=== PATIENT | male | born 1990 | race Caucasian/White ===

== ENCOUNTER 2017-01-27 07:55 | Emergency (ER) | payer OTHER ==
[2017-01-27] MEDS ORDERED: DEXAMETHASONE 10 MG/ML VIAL PO STA (08:24)
[2017-01-27] MEDS ORDERED: CEPHALEXIN 250 MG CAPSULE PO STA (08:24)
[2017-01-27] MEDS ORDERED: IBUPROFEN 600 MG TABLET PO STA (08:24)
[2017-01-27] MEDS ORDERED: CHERRY SYRUP 10 ML UDC PO ONE (08:27)
[2017-01-27] MEDS ORDERED: DEXAMETHASONE 10 MG/ML VIAL ONE (08:27)
[2017-01-27] MEDS ORDERED: IBUPROFEN 600 MG TABLET PO ONE (08:27)
[2017-01-27] MEDS ORDERED: CEPHALEXIN 250 MG CAPSULE PO ONE (08:27)
== END 2017-01-27 09:02 | disposition home or self-care (01) ==
DX: J02.9 Acute pharyngitis, unspecified (principal)
CPT/HCPCS: 87070; 87430; 99283; A9270